=== PATIENT | female | born 1930 | race Caucasian/White ===

== ENCOUNTER 2017-10-08 08:42 | Outpatient (CLI) | payer MEDICARE, OTHER ==
--- NOTE | 2017-10-08 10:28 | RAD ---
4 VIEWS RIGHT KNEE: Date: 10/08/17 HISTORY: Pain x2 weeks. COMPARISON: None. FINDINGS: Mild bone demineralization. Mild bicompartmental degenerative change. No fractures or malalignment. IMPRESSION: Mild bicompartmental degenerative change. POS: NISA
== END 2017-10-08 08:43 | disposition home or self-care (01) ==
LOC: SCSRAD 08:42
PROVIDERS: ATTEND Nurse Practitioner Family
DX: M25.561 Pain in right knee (principal); M17.11 Unilateral primary osteoarthritis, right knee

== ENCOUNTER 2018-01-08 08:09 | Outpatient (CLI) | payer MEDICARE, OTHER | END 2018-01-08 08:10 | disposition home or self-care (01) | LOC: BICMAMMO 08:09 | PROVIDERS: ATTEND Family Medicine | DX: Z12.31 Encounter for screening mammogram for malignant neoplasm of breast (principal); R92.1 Mammographic calcification found on diagnostic imaging of breast | CPT/HCPCS: 77063; 77067 ==

== ENCOUNTER 2018-06-03 00:45 | Outpatient (CLI) | payer MEDICARE, OTHER ==
[2018-06-03 10:08] LABS: #Eosinphils 0.1 thou/uL (0.0-0.7); #Lymphocytes 0.7 thou/uL (1.20-3.40); #Monocytes 0.6 thou/uL (0.11-0.59); #Neutrophils 3.8 thou/uL (1.40-6.50); %Basophils 0.4 % (0.0-1.0); %Eosinophils 1.2 % (0.0-10.0); %Lymphocytes 12.6 % (21.0-51.0); %Monocytes 11.1 % (0.0-10.0); %Neutrophils 74.7 % (42.0-75.0); Hemoglobin 12.7 g/dL (12.0-16.0); Mean Corpuscular HGB CONC 32.5 g/dL (32.0-36.0); Mean Corpuscular Hemoglobin 29.8 pg (27.0-31.0); Mean Corpuscular Volume 91.6 fL (78.0-98.0); Mean Platelet Volume 7.1 fL (7.4-10.4); Platelet Count 212 thou/uL (130-400); RBC Distribution Width 11.3 % (11.5-14.5); Red Blood Cell (RBC) Count 4.26 mill/uL (4.20-5.40); White Blood Cell (WBC) Count 5.1 thou/uL (4.8-10.8)
[2018-06-03 10:09] LABS: Bilirubin Negative (Negative); Blood, Urine Small (Negative); Clarity CLOUDY (Clear); Glucose, Urine (Dipstick) Negative (Negative); Leukocyte Large (Negative); Nitrite Negative (Negative); Protein, Urine (Dipstick) Negative (Neg-Trace); Specific Gravity, Urine 1.007 (1.002-1.036); Urobilinogen 0.2 mg/dL (0.2-1.0)
[2018-06-03 10:13] LABS: Bacteria/HPF Rare-Few HPF (None Seen); Hyaline Casts/LPF 0-3 HYALINE CAST LPF (0-3 Hyaline); Pathc Cast-AUWi Flag 0.14 (0-2.49); Squamous Epithelial None Seen HPF (0-3)
[2018-06-03 10:14] LABS: Yeast-AUWi Flag 115.7 (0-25.0)
[2018-06-03 10:17] LABS: Prothrombin Time 13.3 SEC (12.0-14.7)
[2018-06-03 10:25] LABS: Anion Gap 12 mmol/L (10-20); BUN (Urea Nitrogen) 17 mg/dL (9.8-20.1); Calc. Creatinine Clearance 0 mL/min (70-130); Calcium 9.5 mg/dL (7.8-10.44); Carbon Dioxide 26 mmol/L (23-31); Chloride 96 mmol/L (98-107); Estimated GFR-MDRD 76; Glucose 85 mg/dL (83-110); Potassium 4.9 mmol/L (3.5-5.1); Sodium 129 mmol/L (136-145)
[2018-06-03 10:28] LABS: Yeast-All Forms None Seen HPF (None Seen)
--- NOTE | 2018-06-04 07:03 | EKG ---
Test Reason : Blood Pressure : / mmHG Vent. Rate : 065 BPM Atrial Rate : 065 BPM P-R Int : 170 ms QRS Dur : 084 ms QT Int : 392 ms P-R-T Axes : 084 063 042 degrees QTc Int : 407 ms Normal sinus rhythm Anteroseptal infarct , age undetermined /Poor R wave progression Abnormal ECG When compared with ECG of 30-MAY-2013 10:37, Anteroseptal infarct is now Present T wave amplitude has decreased in Anterior leads T wave amplitude has increased in Lateral leads Confirmed by KELLY ORTIZ ([id number]) on 06/04/2018 7:02:37 AM Referred By: GEORGE Confirmed By:KELLY ORTIZ
== END 2018-06-03 00:46 | disposition home or self-care (01) ==
LOC: LABBT 00:45
PROVIDERS: ATTEND Orthopaedic Surgery
DX: Z01.818 Encounter for other preprocedural examination (principal); M17.11 Unilateral primary osteoarthritis, right knee
CPT/HCPCS: 80048; 81001; 85025; 85610; 87081; 93005; 93010

== ENCOUNTER 2018-06-07 09:16 | Outpatient (CLI) | payer MEDICARE, OTHER | END 2018-06-07 09:17 | disposition home or self-care (01) | LOC: LABBT 09:16 | PROVIDERS: ATTEND Orthopaedic Surgery | DX: Z01.812 Encounter for preprocedural laboratory examination (principal); M17.11 Unilateral primary osteoarthritis, right knee | CPT/HCPCS: 86850; 86900; 86901 ==

== ENCOUNTER 2018-06-14 05:27 | Inpatient (IN) | payer MEDICARE, OTHER ==
[2018-06-14] MEDS ORDERED: Tranexamic Acid 1,000 MG/10 ML VIAL ONE ×3 (05:50→08:44)
[2018-06-14] MEDS ORDERED: Sodium Chloride 0.9% 100 ML ONE (05:50)
[2018-06-14] MEDS ORDERED: Bupivacaine PF 0.5% 30 ML VIAL ONE (06:27)
[2018-06-14] MEDS ORDERED: Midazolam HCl 2 mg/2 ml Vial ONE (06:33)
[2018-06-14] MEDS ORDERED: Fentanyl 100 MCG/2 ML VIAL ONE ×2 (06:34→09:05)
[2018-06-14] MEDS ORDERED: Lidocaine 1% (PF) 30 ML VIAL ONE (06:34)
[2018-06-14] MEDS ORDERED: diphenhydrAMINE 25 MG CAP PO PRN (07:18)
[2018-06-14] MEDS ORDERED: Promethazine HCl 25 MG/ML VIAL IM PRN ×3 (07:18→08:52)
[2018-06-14] MEDS ORDERED: Fentanyl 100 MCG/2 ML VIAL SLOW IVP PRN (07:18)
[2018-06-14] MEDS ORDERED: HYDROcodone/Acetaminophen 10/325 mg Tablet PO PRN ×2 (07:18)
[2018-06-14] MEDS ORDERED: Zolpidem Tartrate 5 MG TAB PO PRN ×2 (07:18→08:02)
[2018-06-14] MEDS ORDERED: Acetaminophen 325 MG TAB PO PRN (07:18)
[2018-06-14] MEDS ORDERED: Ondansetron PF 4 MG/2 ML Vial IVP PRN ×2 (07:18→08:02)
[2018-06-14] MEDS ORDERED: Tranexamic Acid 1,000 MG in Sodium Chloride 0.9% 100 ML IVPB SCH (07:30)
[2018-06-14] MEDS ORDERED: Ropivacaine HCl/PF 250 ML in Premix Bag 1 BAG NERVE BLCK SCH (08:02)
[2018-06-14] MEDS ORDERED: traMADol HCl 50 MG TAB PO PRN (08:02)
[2018-06-14] MEDS ORDERED: Fentanyl 100 MCG/2 ML VIAL IV PRN (08:03)
[2018-06-14] MEDS ORDERED: Acetaminophen 500 MG TAB PO PRN (08:04)
[2018-06-14 08:15] LABS: Bilirubin Negative (Negative); Blood, Urine Negative (Negative); Clarity CLEAR (Clear); Glucose, Urine (Dipstick) Negative (Negative); Leukocyte Negative (Negative); Nitrite Negative (Negative); Protein, Urine (Dipstick) Negative (Neg-Trace); Specific Gravity, Urine 1.011 (1.002-1.036); Urobilinogen 0.2 mg/dL (0.2-1.0); pH, Urine 7.5 (5.0-9.0)
[2018-06-14 08:16] LABS: Urine Culture Reflex No No
[2018-06-14] MEDS ORDERED: Ondansetron HCl/PF 4 MG/2 ML Vial IVP PRN (08:52)
[2018-06-14] MEDS ORDERED: Promethazine HCl 25 MG/ML VIAL SLOW IVP PRN (08:52)
--- NOTE | 2018-06-14 10:10 | OP ---
DATE OF PROCEDURE: 06/14/2018 PREOPERATIVE DIAGNOSIS: Right knee osteoarthrosis. POSTOPERATIVE DIAGNOSIS: Right knee osteoarthrosis. PROCEDURE PERFORMED: Right total knee replacement using Coinplug pinless navigation. [employer]FFIC CONTROL SUPERVISOR: Gareth Guajardo PA-C. ANESTHESIA: The patient did have a general anesthetic as well as preoperative blocks. BLOOD LOSS: Minimal. IMPLANTS: Triathlon total knee system. The femur was a size 3 right cruciate retaining, tibial base plate was size 3 primary tibial base plate. We used a 3 x 9 mm CS X3 tibial poly and asymmetric 29 x 9 X3 patella. DISPOSITION: She did go to recovery room in stable condition. INDICATIONS: This 88-year-old active female who has failed nonoperative treatment for right knee arthritis. This time she wished to have her knee replaced. PROCEDURE IN DETAIL: After all appropriate consent forms were explained and signed, the patient was taken back to the operating room and at this time was given general anesthetic. Once the level of anesthesia was appropriate, a well-padded tourniquet was placed on the right leg, and the leg was then prepped and draped in standard surgical fashion. The limb was exsanguinated and tourniquet taken up to 300 mmHg. Midline incision was made with a 10 blade down through the skin and subcutaneous tissue. Bovie electrocautery was used to coagulate any brisk venous bleeding. A new blade was used to make a medial parapatellar arthrotomy. Small subperiosteal release was performed medially and excess fat pad was removed. The knee was flexed up to gain access to the femur. The femur was navigated and distal femoral resection was made. Epicondylar access was used to align our sizing jig and this was pinned in place. We sized our femur to be a 3. 4:1 cutting block was applied and pinned. Anterior and posterior chamfer cuts were then made. We navigated out our proximal tibia and made our proximal tibial resection. Spreaders were used to remove any posterior osteophytes off the back of the femur as well as remaining meniscal tissue. A long alignment berry was then used to achieve correct rotation of our tibial baseplate and a size 3 was chosen. This was pinned in place. We trialed the polyethylene and a 3 x 9 mm CS X3 tibial polyethylene gave us full extension and good stability throughout range of motion. Two towel clips and a saw were used to cut our patella. Three lug nuts were drilled and asymmetric 29 x 9 X3 patella was trialed which sat nicely in the trochlear groove. We then drilled our femur and punched our tibia. All components were removed. The knee was thoroughly irrigated and dried. Cement was mixed into the cement gun on the back table. Components were then placed. The knee was held out in full extension until the cement had dried. All excess bone cement was removed. Multiple #2 Vicryl stitches as well as a Quill were used to close our extensor mechanism. 0 Quill followed by a running Monoderm was then used to close the skin. Surgicel glue was then used on the skin. Once this had dried, soft tissue dressing was applied to the limb, tourniquet was let down, and the toes pinked up nicely. The patient was then awakened and taken to the recovery room in stable condition. All counts were correct at the end of the case. The patient did receive preoperative IV antibiotics. The patient was injected with Exparel for postoperative pain relief. Job ID: [id number]
[2018-06-14] MEDS: Sodium Chloride 0.9% 1,000 ML IV SCH ×2 (11:08→17:50)
[2018-06-14] MEDS: Aspirin 81 mg Enteric Coated Tablet PO SCH ×2 (11:08→20:51)
[2018-06-14] MEDS: Calcium Carbonate 500 MG TAB PO SCH ×2 (11:08→20:51)
[2018-06-14] MEDS: Loratadine 10 MG TAB PO SCH (11:09)
[2018-06-14] MEDS: CEFAZOLIN 2 GM in Premix Bag 1 BAG IVPB SCH ×2 (14:32→22:00)
[2018-06-14] MEDS ORDERED: Ropivacaine 0.5% HCl/PF (150 MG/30 ML VIAL) ONE (14:42)
[2018-06-14] MEDS ORDERED: Ropivacaine 0.2% HCl/PF (40 MG/20 ML VIAL) ONE (14:42)
[2018-06-14] MEDS ORDERED: PROPOFOL 200 MG/20 ML VIAL ONE (15:16)
[2018-06-14] MEDS ORDERED: Ondansetron PF 4 MG/2 ML Vial ONE (15:16)
[2018-06-14] MEDS ORDERED: Lidocaine 1% PF 5 ML VIAL ONE (15:16)
--- NOTE | 2018-06-14 16:07 | CON ---
DATE OF CONSULTATION: 06/14/2018 REASON FOR CONSULTATION: Medical management of the patient's medical problems. HISTORY OF PRESENT ILLNESS: The patient is an 88-year-old female, who just underwent right knee replacement by Dr. Harrell this morning. PAST MEDICAL HISTORY: Positive for; 1. Hypothyroidism. 2. GERD. 3. Gastric ulcer with hemorrhage. 4. Hypertension. 5. Seasonal allergies and allergic rhinitis. 6. Macular migraines. 7. Diverticulitis per history, then diverticulosis by colonoscopy. 8. History of amaurosis fugax. PAST SURGICAL HISTORY: 1. Prolapsed bowel repair in 2002. 2. Total hysterectomy and bilateral salpingo oophorectomy. MEDICATIONS: 1. Lisinopril 10 mg once a day. 2. Levothyroxine 75 mcg once a day plus many supplements with vitamins and minerals. FAMILY HISTORY: Father was an alcoholic. He passed when he was 82 and mother at 87 with heart failure. SOCIAL HISTORY: She denies any cigarette smoking. She drinks maybe 1 to 2 beers a week. She does not use any illicit drugs. ALLERGIES: NONE. REVIEW OF SYSTEMS: All systems were reviewed and only positive findings those which are in HPI. PHYSICAL EXAMINATION: VITAL SIGNS: Blood pressure is to be obtained as well as other vitals, since the patient just came back from the surgery. HEENT: Her head is atraumatic and normocephalic. Eyes are PERRLA. Sclerae are nonicteric. Conjunctivae somewhat palish. Oral mucosa is moist. NECK: Supple. LUNGS: Clear. HEART: S1 and S2 normal. No S3. No S4. No any murmur. ABDOMEN: Soft and nontender. Bowel sounds are present. No organomegaly. EXTREMITIES: Right leg is wrapped status post surgery on the knee. Left leg does not show any swelling. There is a SCD in place. NEUROLOGIC: She is able to move her all 4 extremities. She will follow my commands. There is no any motor or sensory deficit present. Cranial nerves are intact. LABORATORY DATA: Urinalysis within normal limits. I do not see any other lab work done in the hospital. Electrocardiogram was done, which shows some normal sinus rhythm with Q-waves in V1 through V3. IMPRESSION: 1. Status post total right knee replacement. 2. Hypothyroidism. 3. Hypertension. 4. GERD. 5. History of gastric ulcer with hemorrhage. 6. Seasonal allergic rhinitis. 7. History of diverticulitis and diverticulosis per colonoscopy. 8. History of amaurosis fugax in the past. RECOMMENDATION: We agree with current regimen postop with Pain Management and duration of her 2 medications she takes at home, which is lisinopril and levothyroxine. We agree with 81 mg of aspirin. She needs DVT prophylaxis with SCD, and we will leave up to an Orthopedic discretion further DVT prophylaxis. Her electrocardiogram showed Q-waves in V1, V2, and V3. She had stress test done in 2013, which showed normal left ventricular ejection fraction. I would recommend to have follow up on this issue and have stress test done with Cardiolite later when she recovers from her current orthopedic problem, then we are going to continue aspirin. Thank you very much for the consultation and we will follow up with you. Job ID: [id number]
[2018-06-14] MEDS: HYDROcodone/Acetaminophen 7.5/325 mg Tablet PO PRN ×2 (17:44→21:59)
[2018-06-14] MEDS ORDERED: Vancomycin HCl 1 GM in Premix Bag 1 BAG IVPB SCH (20:00)
[2018-06-14] MEDS: Lisinopril 10 MG TAB PO SCH (20:51)
[2018-06-14] MEDS: Citrucel 500 MG TAB PO SCH (22:01)
[2018-06-14] MEDS: traMADol HCl 50 MG TAB PO PRN (23:16)
[2018-06-15] MEDS: Sodium Chloride 0.9% 1,000 ML IV SCH ×2 (03:13→16:45)
[2018-06-15] MEDS: HYDROcodone/Acetaminophen 7.5/325 mg Tablet PO PRN ×4 (03:28→18:25)
[2018-06-15] MEDS: Levothyroxine Sodium 75 MCG TAB PO SCH (05:31)
[2018-06-15 06:12] LABS: Hemoglobin 10.4 g/dL (12.0-16.0); Mean Corpuscular HGB CONC 33.3 g/dL (32.0-36.0); Mean Corpuscular Hemoglobin 30.6 pg (27.0-31.0); Mean Corpuscular Volume 91.8 fL (78.0-98.0); Mean Platelet Volume 7.2 fL (7.4-10.4); Platelet Count 158 thou/uL (130-400); RBC Distribution Width 11.2 % (11.5-14.5); White Blood Cell (WBC) Count 4.1 thou/uL (4.8-10.8)
[2018-06-15] MEDS: Ferrous Gluconate 324 MG TAB PO SCH ×2 (08:40→18:27)
[2018-06-15] MEDS: Calcium Carbonate 500 MG TAB PO SCH ×2 (08:40→20:30)
[2018-06-15] MEDS: Loratadine 10 MG TAB PO SCH (08:40)
[2018-06-15] MEDS: Senokot S 8.6-50 MG TAB PO SCH ×2 (08:40→20:30)
[2018-06-15] MEDS: Multivitamin W/ Minerals 1 TAB PO SCH (08:40)
[2018-06-15] MEDS: Aspirin 81 mg Enteric Coated Tablet PO SCH ×2 (08:40→20:30)
[2018-06-15 11:56] VITALS: BMI 20.7
--- NOTE | 2018-06-15 12:45 | PRG ---
DATE OF SERVICE: 06/15/2018 SUBJECTIVE: Lupe is an 88-year-old female, who is postop day 1 from a right total knee arthroplasty. She is doing relatively well. She did have some discomfort overnight, but it has been since we had established control since then. She was visiting yesterday evening, did relatively well. OBJECTIVE: VITAL SIGNS: Temperature 97.0, pulse 83, respiratory rate 22, and blood pressure 122/60. GENERAL: She is alert and oriented to person, place, time, and situation. Grossly nonfocal. EXTREMITIES: Visual inspection of the right lower extremity demonstrated her to have her incision is clean and closed without any strikethrough. She is neurovascularly intact in the right lower extremity. Dressing is intact, clean, and dry. LABORATORY DATA: Hemoglobin and hematocrit are 10.4 and 31.2. IMPRESSION: An 88-year-old female, postop day 1, right total knee arthroplasty, doing well. PLAN: Continue current care. Recheck in a.m. I believe she is scheduled to stay with us for 3 nights and discharge to rehabilitation stay. Job ID: [id number]
--- NOTE | 2018-06-15 13:23 | PRG ---
DATE OF SERVICE: 06/15/2018 SUBJECTIVE: The patient is seen and examined at the bedside. She is doing well. She does not have much complaints to offer. OBJECTIVE: VITAL SIGNS: Blood pressure is 153/68, temperature is 97.9, pulse is 84, respiratory rate is 18, O2 saturation is 95% on room air. HEENT: Head is atraumatic and normocephalic. Eyes are PERRLA. Sclerae are nonicteric. Oral mucosa is moist. NECK: Supple. LUNGS: Clear. HEART: S1, S2 normal. No S3. No S4. No any murmur. ABDOMEN: Soft, nontender. Bowel sounds are present. No organomegaly. EXTREMITIES: Right leg is wrapped, but status post total knee replacement of the knee status. NEUROLOGICAL EXAMINATION: She is alert and oriented x4. There is no any motor or sensory deficit present. Cranial nerves are intact. LABORATORY DATA: Urine culture, no growth in 24 hours. White count of 4.1, hemoglobin 10.4, hematocrit 31.2, platelet count is 158,000. IMPRESSION: 1. Status post total right knee replacement. 2. Hypertension. 3. Hypothyroidism. 4. Gastroesophageal reflux disease. 5. History of gastric ulcer with hemorrhage. 6. Seasonal allergies. 7. History of diverticulitis and diverticulosis per colonoscopy. 8. History of amaurosis fugax in the past. 9. Postoperative anemia. RECOMMENDATION: Continue current regimen. She is on 81 mg of aspirin twice a day that is used by orthopedist for DVT prophylaxis. Again, the need for further diagnostic workup on her cardiac condition is required and this was discussed with the family and it will be done after she is out from her postsurgery rehab. Job ID: [id number]
[2018-06-15] MEDS: traMADol HCl 50 MG TAB PO PRN (20:28)
[2018-06-15] MEDS: Lisinopril 10 MG TAB PO SCH (20:30)
[2018-06-15] MEDS: Citrucel 500 MG TAB PO SCH (20:33)
[2018-06-16] MEDS: Sodium Chloride 0.9% 1,000 ML IV SCH ×2 (00:40→09:10)
[2018-06-16] MEDS: Levothyroxine Sodium 75 MCG TAB PO SCH (05:08)
[2018-06-16 05:52] LABS: Mean Corpuscular HGB CONC 32.8 g/dL (32.0-36.0); Mean Corpuscular Hemoglobin 30.3 pg (27.0-31.0); Mean Corpuscular Volume 92.6 fL (78.0-98.0); Mean Platelet Volume 7.3 fL (7.4-10.4); Platelet Count 193 thou/uL (130-400); RBC Distribution Width 11.2 % (11.5-14.5); Red Blood Cell (RBC) Count 3.61 mill/uL (4.20-5.40); White Blood Cell (WBC) Count 7.5 thou/uL (4.8-10.8)
[2018-06-16] MEDS: Senokot S 8.6-50 MG TAB PO SCH (09:00)
[2018-06-16] MEDS: Loratadine 10 MG TAB PO SCH (09:01)
[2018-06-16] MEDS: Aspirin 81 mg Enteric Coated Tablet PO SCH (09:01)
[2018-06-16] MEDS: Ferrous Gluconate 324 MG TAB PO SCH ×2 (09:01→17:06)
[2018-06-16] MEDS: Multivitamin W/ Minerals 1 TAB PO SCH (09:01)
[2018-06-16] MEDS: Calcium Carbonate 500 MG TAB PO SCH (09:01)
[2018-06-16] MEDS: traMADol HCl 50 MG TAB PO PRN ×2 (09:04→15:39)
[2018-06-16] MEDS: PSEUDOEPHEDRINE PO SCH (09:11)
[2018-06-16] MEDS: DESLORATADINE PO SCH (09:11)
[2018-06-16] MEDS: MAGNESIUM HYDROX PO SCH (09:11)
[2018-06-16] MEDS: CALCIUM CARB PO SCH (09:11)
[2018-06-16] MEDS: HYDROcodone/Acetaminophen 7.5/325 mg Tablet PO PRN ×2 (10:41→17:06)
--- NOTE | 2018-06-16 14:30 | PRG ---
DATE OF SERVICE: 06/16/2018 SUBJECTIVE: The patient was seen and examined at the bedside. She seems to be doing quite well. She just had her PT done, so she is somewhat exhausted and in pain, but otherwise, she is doing well. Her appetite is fair. OBJECTIVE: VITAL SIGNS: Blood pressure is 134/71, pulse is 78, temperature is 97.9, respiratory rate is 18, O2 saturation is 99% on room air. HEENT: Head is atraumatic and normocephalic. Eyes are PERRLA. Sclerae are nonicteric. Oral mucosa is moist. NECK: Supple. LUNGS: Clear. HEART: S1 and S2 normal. No S3. No S4. No any murmur. ABDOMEN: Soft and nontender. EXTREMITIES: Right knee is in dressing. NEUROLOGICAL: She is alert and oriented x4. There is no any motor or sensory deficit present. Cranial nerves are intact. LABORATORY DATA: Labs showed white count of 7.5, hemoglobin 11.0, hematocrit 33.4, platelet count is 193. IMPRESSION: 1. Status post total knee replacement. 2. Hypertension. 3. Hypothyroidism. 4. Some Q-waves in V1, V2, and V3, a questionable cardiac/coronary event in the past, she is not aware of that. 5. Gastroesophageal reflux disease. 6. History of gastric ulcer with hemorrhage. 7. Seasonal allergies. 8. History of diverticulitis and diverticulosis per colonoscopy. 9. History of amaurosis fugax in the past. 10. Postoperative anemia. DISCUSSION: The patient is going to continue her aspirin 81 mg twice a day for deep venous thrombosis prophylaxis. I obtained the previous EKGs from 2013 and that they look somewhat similar to the one we have done during this hospitalization except for lead V3, which is different. I still recommend her to follow up with her primary care physician versus Dr. Ware, sales representative [employer], she used to see long time ago, for further evaluation of possible coronary artery disease and she will continue her PT and she will be transferred most likely today to the rehab. Job ID: [id number]
[2018-06-16 16:12] VITALS: BP 124/55; TEMP 97.4
--- NOTE | 2018-06-17 11:50 | DIS ---
DATE OF ADMISSION: 06/14/2018 DATE OF DISCHARGE: 06/16/2018 ADMISSION DIAGNOSIS: End-stage tricompartmental osteoarthritis, right knee. DISCHARGE DIAGNOSIS: End-stage tricompartmental osteoarthritis, right knee. OPERATIVE PROCEDURE: Right total knee arthroplasty. DISCHARGE DISPOSITION: Inpatient Rehabilitation. CONSULTANTS: 1. [facility] for acute postop pain management and [facility] for inpatient medical management. 2. [facility]. BRIEF CLINICAL HISTORY: Lupe is an 88-year-old white female who was admitted to [facility], underwent the above elective procedure on the date of admission without intra-, delmy-, or postoperative complication. HOSPITAL COURSE: Unremarkable with the exception of the patient being slow progressing toward ADLs and independence; therefore it was elected to consult with inpatient rehabilitation for further efforts of this. Her hemoglobin and hematocrit on day of discharge were 11 and 33 respectively. At the time of transfer, patient is afebrile. She is ambulatory with assist of one, requiring assistance with in and out of bed, tolerating regular diet, voiding without difficulty. Her incision is clean, closed, and she is neurovascularly intact in the involved extremity. DISCHARGE MEDICATIONS: Please see medication reconciliation form. We will be happy to see the patient on an as-needed basis between now and her next appointment in 10-12 days. CONDITION ON TRANSFER: Stable. PROGNOSIS: Good. Job ID: [id number]
== END 2018-06-16 17:45 | DRG 470 ==
LOC: SDC 05:27 → SJJU 07:18
PROVIDERS: ADMIT Orthopaedic Surgery; ATTEND Orthopaedic Surgery
PROC: 0SRC0J9 Replacement of Right Knee Joint with Synthetic Substitute, Cemented, Open Approach (ICD-10-PCS; principal; 2018-06-14)
PROC: 8E0YXBZ Computer Assisted Procedure of Lower Extremity (ICD-10-PCS; 2018-06-14)
DX: M17.11 Unilateral primary osteoarthritis, right knee (principal); D62 Acute posthemorrhagic anemia; I10 Essential (primary) hypertension; E03.9 Hypothyroidism, unspecified; K21.9 Gastro-esophageal reflux disease without esophagitis; Z87.11 Personal history of peptic ulcer disease; Z86.69 Personal history of other diseases of the nervous system and sense organs; Z79.899 Other long term (current) drug therapy; Z79.82 Long term (current) use of aspirin
CPT/HCPCS: 36415; 81003; 85027; 87086; C1713; C1776; J2001; J2250; J2405; J2704; J2795; J3010; J3370; J7050; S0020

== ENCOUNTER 2018-11-04 07:52 | Outpatient (CLI) | payer MEDICARE, OTHER ==
--- NOTE | 2018-11-04 11:00 | MRI ---
MRI CERVICAL SPINE NONCONTRAST: DATE: 11/04/2018. HISTORY: An 88-year-old female with M54.12, cervical radiculitis. Bilateral hand hypesthesia and paresthesia. FINDINGS: Marked reversal of cervical curvature with apex of kyphosis at approximately C4. Broad-based disk-os teophytic bar complexes encroach upon the ventral aspect of the spinal canal, at C3-4, C4-5, C5-6, an d C6-7. These indent the ventral surface of the spinal cord at C3-4, C4-5, and C5-6. Thickened liga mentum flavum encroaches upon the posterior aspect of the spinal canal at C6-7. Cervical spinal cord is normal in size and signal. Uncinate process osteophytes are small at all levels. C2-3 and C7-T1 disk spaces are maintained. Moderate disk space narrowing at C4-5. Severe disk space narrowing at C3-4. Moderate to severe disk space narrowing at C5-6 and C6-7. Irregularities of end plates at C3- 4, C5-6, and C6-7. Moderate bilateral facet DJD at C7-T1. No high-grade facet DJD at other levels. C1-2: No central stenosis. C2-3: Normal. C3-4: Despite indentation of spinal cord by disk-osteophytic bar complex, no significant central mallory nosis and no high-grade neural foraminal stenosis. C4-5: Despite indentation of spinal cord by disk-osteophytic bar complex, no central stenosis. No h igh-grade neural foraminal stenosis. C5-6: Despite indentation of spinal cord by disk-osteophytic bar complex, the degree of central spin al canal stenosis is mild. Bilateral mild to moderate neural foraminal stenosis, left greater than r ight. C6-7: Disk-osteophytic bar complex does not contact the spinal cord. Ligamentum flavum thickening. Mild central spinal canal stenosis. Moderate bilateral neural foraminal stenosis. C7-T1: No central or neural foraminal stenosis. IMPRESSION: 1. Cervical spondylosis with multilevel high-grade degenerative disk disease, and kyphosis. 2. Multilevel indentations of the spinal cord without high-grade central spinal canal stenosis. 3. Moderate bilateral neural foraminal stenosis at C6-7. 4. Moderate bilateral facet osteoarthrosis at C7-T1. POS: CET
== END 2018-11-04 07:53 | disposition home or self-care (01) ==
LOC: BICMRI 07:52
PROVIDERS: ATTEND Orthopaedic Surgery Hand Surgery
DX: M48.02 Spinal stenosis, cervical region (principal); M43.22 Fusion of spine, cervical region; M47.22 Other spondylosis with radiculopathy, cervical region; M50.11 Cervical disc disorder with radiculopathy, high cervical region; M47.813 Spondylosis without myelopathy or radiculopathy, cervicothoracic region; M40.202 Unspecified kyphosis, cervical region
CPT/HCPCS: 72141

== ENCOUNTER 2018-12-29 07:53 | Outpatient (CLI) | payer MEDICARE, OTHER ==
--- NOTE | 2018-12-29 09:36 | BD ---
DEXA BONE MINERAL DENSITY STUDY: HISTORY: Age related osteoporosis without current pathologic fracture. COMPARISON: None. FINDINGS: LUMBAR SPINE BMD (g/cm2) T-SCORE L1 0.688 -2.7 L2 0.851 -1.6 L3 0.900 -1.7 L4 0.946 -1.0 TOTAL 0.856 -1.7 BMD (g/cm2) T-SCORE LEFT FEMORAL NECK 0.6 -1.9 LEFT TOTAL HIP 0.804 -1.1 RIGHT FEMORAL NECK 0.591 -2.3 RIGHT TOTAL HIP 0.789 -1.3 WHO CLASSIFICATION: Osteopenia. TEN YEAR FRACTURE RISK: Major osteoporotic fracture: 12% Hip fracture: 4.4% IMPRESSION: Osteopenia with elevated fracture risk as above. POS: NISA
== END 2018-12-29 07:54 | disposition home or self-care (01) ==
LOC: BICMAMMO 07:53
PROVIDERS: ATTEND Internal Medicine Rheumatology
DX: M81.0 Age-related osteoporosis without current pathological fracture (principal)
CPT/HCPCS: 77080

== ENCOUNTER 2019-01-19 08:37 | Outpatient (CLI) | payer MEDICARE, OTHER ==
[2019-01-19 10:13] LABS: Hemoglobin 12.5 g/dL (12.0-16.0); Mean Corpuscular HGB CONC 33.8 g/dL (32.0-36.0); Mean Corpuscular Hemoglobin 30.4 pg (27.0-31.0); Mean Corpuscular Volume 89.7 fL (78.0-98.0); Mean Platelet Volume 6.8 fL (7.4-10.4); Platelet Count 202 thou/uL (130-400); RBC Distribution Width 11.6 % (11.5-14.5); Red Blood Cell (RBC) Count 4.13 mill/uL (4.20-5.40); White Blood Cell (WBC) Count 3.4 thou/uL (4.8-10.8)
[2019-01-19 10:28] LABS: Bilirubin Negative (Negative); Blood, Urine Negative (Negative); Clarity Clear (Clear); Glucose, Urine (Dipstick) Normal (Negative); Leukocyte Negative Leu/uL (Negative); Nitrite Negative (Negative); Protein, Urine (Dipstick) Negative (Neg-Trace); RBC/HPF 0-3 HPF (0-3); Squamous Epithelial 0-3 HPF (0-3); Transitional Epithelial 0-3 HPF (None Seen); Urobilinogen Normal mg/dL (Less than 2); WBC/HPF None Seen HPF (0-3)
[2019-01-19 10:55] LABS: Bacteria/HPF None Seen HPF (None Seen)
[2019-01-19 11:32] LABS: Band 6 % (5-11); Elliptocytes SLIGHT = 2-5 cells (100X) (0-1/hpf); Eosinophils 1 % (0-10); Lymphocytes 16 % (21-51); MDiff Complete? YES; Monocytes 11 % (0-10); Neutrophil 59 % (42-75); Ovalocytes SLIGHT = 2-5 cells (100X) (0-1/hpf); Platelet Morphology Comment Appears Adequate; Polychromasia SLIGHT = 2-3 cells (100X) (0-2/hpf); Reactive Lymphocytes 7 % (0-10); Tear Drops SLIGHT = 2-5 cells (100X) (0-1/hpf)
--- NOTE | 2019-01-20 23:21 | EKG ---
Test Reason : Blood Pressure : / mmHG Vent. Rate : 069 BPM Atrial Rate : 069 BPM P-R Int : 186 ms QRS Dur : 088 ms QT Int : 394 ms P-R-T Axes : 084 061 063 degrees QTc Int : 422 ms Normal sinus rhythm Septal infarct (cited on or before 03-JUN-2018) Abnormal ECG When compared with ECG of 03-JUN-2018 09:25, No significant change was found Confirmed by Carloz TITUS ([id number]) on 01/20/2019 11:21:04 PM Referred By: KAILEY Confirmed By:Carloz TITUS
== END 2019-01-19 08:38 | disposition home or self-care (01) ==
LOC: LABBT 08:37
PROVIDERS: ATTEND Orthopaedic Surgery Hand Surgery
DX: Z01.818 Encounter for other preprocedural examination (principal); G56.01 Carpal tunnel syndrome, right upper limb
CPT/HCPCS: 81001; 85025; 93005; 93010

== ENCOUNTER 2019-01-21 05:38 | Day surgery (SDC) | payer MEDICARE, OTHER ==
[2019-01-21] MEDS ORDERED: Fentanyl 100 MCG/2 ML VIAL ONE (06:47)
[2019-01-21] MEDS ORDERED: Sodium Chloride 0.9% 10 ML ONE (08:43)
[2019-01-21] MEDS ORDERED: Betamet Acet/Betamet Na Ph 30 MG/5 ML VIAL ONE (08:43)
[2019-01-21] MEDS ORDERED: Bacitracin Zinc Ointment 30 gm TUBE ONE (08:43)
[2019-01-21] MEDS ORDERED: Bupivacaine PF 0.5% 30 ML VIAL ONE (08:46)
[2019-01-21] MEDS ORDERED: Ketorolac Tromethamine 30 MG/ML VIAL ONE (10:22)
--- NOTE | 2019-01-24 10:53 | OP ---
DATE OF PROCEDURE: 01/21/2019 PREOPERATIVE DIAGNOSIS: Right carpal tunnel syndrome. POSTOPERATIVE DIAGNOSIS: Right carpal tunnel syndrome. FINDINGS: Very tight transcarpal ligament early hourglass formation and stippling in the center of the proximal aspect of the transverse carpal ligament area. PROCEDURE PERFORMED: Right carpal tunnel release/median nerve was passed at the wrist. TOURNIQUET TIME: 12 minutes. BLOOD LOSS: 5 mL or less. INJECTABLE: 1. A 20 mL of 0.5% Marcaine along the incisional region, 10 before the incision and 10 after. No epinephrine. 2. 5 mL Celestone drip along the area of the nerve. There was greatest evidence of allograft formation. INDICATIONS: Failed conservative treatment with electrodiagnostic clinical exam consistent with carpal tunnel. DESCRIPTION OF PROCEDURE: After identified the proper site, side, and procedure that matched the consent, the limb was prepped and draped. Tourniquet was inflated to 250 mmHg pressure, and we outlined a mini incision 2.5 cm long beginning at 5 mm distal volar with flexion crease in line with the ring finger and as far distal as Howe's cardinal line. Carried the incision through skin and subcutaneous tissue to identify the fascia and the insertion of the palmaris longus. We stayed slightly ulnar to this, we were able to visualize transcarpal ligament. We then released it with appropriate retraction and the use of [place] blade from the midportion distally and then released from the midportion proximally. There was very tight retinaculum as well as early stippling over 1 cm area without early allograft formation over the median nerve. The nerve was now free. I placed 5 mL of Celestone in the wound along the nerve area Closed the subcutaneous tissue and skin after obtaining hemostasis, inflating the tourniquet with a single 4-0 nylon, and the patient left the operating room without evidence of anesthetic or operative complication. Job ID: [id number]
== END 2019-01-21 12:00 | disposition home or self-care (01) ==
LOC: SDC 05:38
PROVIDERS: ATTEND Orthopaedic Surgery Hand Surgery
PROC: 01N50ZZ Release Median Nerve, Open Approach (ICD-10-PCS; principal; 2019-01-21)
DX: G56.01 Carpal tunnel syndrome, right upper limb (principal); E03.9 Hypothyroidism, unspecified; E78.5 Hyperlipidemia, unspecified; Z79.82 Long term (current) use of aspirin; Z79.899 Other long term (current) drug therapy; Z88.1 Allergy status to other antibiotic agents; Z88.2 Allergy status to sulfonamides
CPT/HCPCS: J0690; J0702; J1885; J3010; J3490; S0020